=== PATIENT | male | born 1985 | race Caucasian/White ===

== ENCOUNTER 2020-01-26 21:21 | Observation (INO) | payer OTHER ==
[~2020-01-26] VITALS: Ht 175.3 cm; Wt 72.6 kg
[~2020-01-26 21:21] MED LIST: CIPRSO OS; Ciloxan5 ML RIGHTEYE; HYDACE10B; HYDACE5 PO; METPRE4DP PO; OXYACE5T PO; PENVK500 PO; Pepcid40 MG PO; RANI150 PO; RXOXYACE PO; TOBR.3OPO OP
[2020-01-26 22:20] LABS: Calcium, Ionized (POC) 1.13 mmol/L (1.10-1.46); Chloride (POC) 102 mmol/L (98-108); Creatinine (POC) 1.1 mg/dL (0.8-1.3); Glucose (ISTAT POC) 112 mg/dL (70-99); Potassium (POC) 3.8 mmol/L (3.5-5.5); Sodium (POC) 141 mmol/L (135-148); Total CO2 (POC) 27 mmol/L (21-32)
--- NOTE | 2020-01-27 01:07 | NUR ---
ARRIVAL TO UNIT PT ARRIVED TO UNIT AT APPROX [id number]. PT TRANSFERED SELF TO BED. NO WEAKNESS NOTED. PT CRADLING LEFT ARM KEEPING IT AGAINST BODY. DENIES PAIN IN ARM. FULL SENSATION, CAN WIGGLES FINGERS, CAP REFILL <2. SWELLING STILL PRESENT, PT STATES ITS IMPROVING. SO AT BEDSIDE WITH PT. PT SITTING UP IN BED, SO BROUGHT IN FOOD FOR PT TO EAT. ORIENTED TO ROOM, CALL LIGHT IN REACH.
--- NOTE | 2020-01-27 04:22 | NUR ---
SHIFT SUMMARY NO ACUTE CHANGES SINCE ARRIVAL TO FLOOR. PT CONTINUES TO DENY PAIN. SLEEPING IN BED SINCE ARRIVAL TO UNIT. NO CHANGES IN SENSATION OF HAND. CONTINUES TO HAVE MOVEMENT AND GOOD CAP REFILL. NO BLEEDING NOTED IN WRIST. SCAB STILL INTACT.
[2020-01-27] MEDS ORDERED: MOXI400 PO (11:17)
--- NOTE | 2020-01-27 12:23 | NUR ---
DISCHARGED CALLED PRESCRIPTION INTO [facility] PER PT REQUEST; VERIFIED PHARMACY DID HAVE MED IN STOCK. CLEANED WOUND AND PLACED BANDAID. DC'D IV, CATHETER INTACT. REVIEWED DC INSTRUCTIONS W/PT; VERBALIZED UNDERSTANDING. PT LEFT UNIT BY AMBULATION W/POSSESSIONS AND DC INSTRUCTIONS IN HAND, ACCOMPANIED BY S.O.
== END 2020-01-27 11:55 | disposition home or self-care (01) ==
LOC: ER 21:21 → SURS 21:22
PROVIDERS: Emergency Medicine; ADMIT Surgery
DX: S61.552A Open bite of left wrist, initial encounter (principal); W54.0XXA Bitten by dog, initial encounter; Z88.0 Allergy status to penicillin; Z88.8 Allergy status to other drugs, medicaments and biological substances
CPT/HCPCS: 36415; 73201; 80047; 85014; 96365; 96372; 99284-25; G0378; J7050; Q9967

== ENCOUNTER → 2021-09-01 | Outpatient (CLI) | payer OTHER ==
[~2021-09-01] MED LIST changes: +MOXI400 PO
[2021-09-03 02:07] LABS: CHLAMYDIA TRACHOMATIS, NAA Negative (Negative)
== END | disposition home or self-care (01) ==
LOC: LAB SHORT 10:25
PROVIDERS: Family Medicine
DX: R30.9 Painful micturition, unspecified (principal); Z72.51 High risk heterosexual behavior
CPT/HCPCS: 87086; 87491; 87591

== ENCOUNTER 2024-01-11 04:40 | Emergency (ER) | payer OTHER ==
[~2024-01-11] VITALS: Ht 182.9 cm; Wt 83.9 kg
[2024-01-11] MEDS ORDERED: HYDROmorphone HCl/Pf 1MG SYR IV ONE (04:55)
[2024-01-11 05:25] LABS: Hematocrit 41.5 % (37.0-53.0); Hemoglobin 15.2 g/dL (13.5-17.5); Mean Corpuscular HGB 31.1 pg (26.0-34.0); Mean Corpuscular HGB Conc 36.6 g/dL (31.5-36.5); Mean Corpuscular Volume 85 fL (80-100); Mean Platelet Volume 10.7 fL (9.1-12.4); Platelet Count 362 K/mm3 (150-400); RDW Coefficient Variation 11.9 % (11.7-14.2); RDW Standard Deviation 36.7 fL (35.1-46.3); Red Blood Cell Count 4.88 M/mm3 (4.30-5.90); White Blood Cell Count 17.33 K/mm3 (4.00-11.30)
[2024-01-11 05:37] LABS: Alanine Aminotransfer (ALT/SGP 40 U/L (12-78); Albumin, Blood 4.2 g/dL (3.4-5.0); Albumin/Globulin Ratio 1.1 (0.8-1.8); Alk Phos 72 U/L (50-136); Anion Gap 16 mmol/L (3-11); Aspartate Aminotrans (AST/SGOT 23 U/L (12-37); Beta HCG, Quantitative, Serum <1 mIU/mL (0-1); Bilirubin, Total 0.9 mg/dL (0.1-1.0); Blood Urea Nitrogen 16 mg/dL (8-24); Bun/Creatinine Ratio 16.1 (12.0-20.0); CO2, Blood 20 mmol/L (21-32); Calcium, Blood 9.2 mg/dL (8.5-10.1); Chloride, Blood 106 mmol/L (98-108); Globulin, Blood 3.7 g/dL (2.2-4.0); Glomerular Filtration Rate 99 (60-); Glucose, Blood 163 mg/dL (70-99); Potassium, Blood 3.5 mmol/L (3.5-5.5); Sodium, Blood 138 mmol/L (136-145); Total Protein, Blood 7.9 g/dL (6.4-8.2)
[2024-01-11] MEDS ORDERED: HYDROmorphone HCl/Pf 1MG SYR ONE (05:38)
[2024-01-11 05:43] LABS: International Normalized Ratio 1.07; Prothrombin Time Results 11.4 Sec (9.7-11.5)
[2024-01-11] MEDS ORDERED: HYDROmorphone HCl/Pf 1MG SYR IV PRN (05:50)
[2024-01-11 06:15] VITALS: BP 140/92
[2024-01-11 06:31] LABS: BAND PERCENT MAN 1 % (0-8); BASOPHILS PERCENT MAN 0 % (0-2); EOSINOPHILS ABSOLUTE MAN 0.34 K/mm3 (0.00-0.68); EOSINOPHILS PERCENT MAN 2 % (0-6); LYMPHOCYTES ABSOLUTE MAN 5.89 K/mm3 (0.84-5.20); LYMPHOCYTES PERCENT MAN 34 % (21-46); MONOCYTES ABSOLUTE MAN 0.86 K/mm3 (0.16-1.47); MONOCYTES PERCENT MAN 5 % (4-13); NEUTROPHILS ABSOLUTE MAN 10.22 K/mm3 (1.96-9.15); SEG NEUTROPHILS PERCENT MAN 58 % (41-73); TOTAL CELLS COUNTED 100
== END 2024-01-11 06:23 | disposition short-term general hospital (02) ==
LOC: ER 04:40
PROVIDERS: Emergency Medicine
DX: S32.031A Stable burst fracture of third lumbar vertebra, initial encounter for closed fracture (principal); S01.01XA Laceration without foreign body of scalp, initial encounter; S01.81XA Laceration without foreign body of other part of head, initial encounter; M48.061 Spinal stenosis, lumbar region without neurogenic claudication; V48.6XXA Car passenger injured in noncollision transport accident in traffic accident, initial encounter; Z88.0 Allergy status to penicillin; Z88.8 Allergy status to other drugs, medicaments and biological substances; Z79.899 Other long term (current) drug therapy
CPT/HCPCS: 70450; 71260; 72125; 74177; 80053; 84702; 85025; 85610; 85730; 86850; 86900; 86901; 93005; 93010; 96374-59; 99285-25; J1170; L0160; Q9967